=== PATIENT | female | born 1940 | race Two or more races ===

== ENCOUNTER → 2017-08-12 | Outpatient (CLI) | payer OTHER | END | disposition home or self-care (01) | LOC: RAD 09:45 | DX: J45.998 Other asthma (principal) ==

== ENCOUNTER 2017-12-18 11:49 | Emergency (ER) | payer OTHER ==
[~2017-12-18] VITALS: Ht 152.4 cm; Wt 63.5 kg
== END 2017-12-18 22:32 | disposition home or self-care (01) ==
LOC: ER 11:49
DX: K29.60 Other gastritis without bleeding (principal)

== ENCOUNTER 2018-08-29 16:33 | Emergency (ER) | payer OTHER ==
[~2018-08-29] VITALS: Ht 152.4 cm; Wt 64.4 kg
== END 2018-08-29 19:35 | disposition home or self-care (01) ==
LOC: ER 16:33
DX: K29.70 Gastritis, unspecified, without bleeding (principal)

== ENCOUNTER 2018-09-14 10:10 | Emergency (ER) | payer OTHER ==
[~2018-09-14] VITALS: Ht 149.9 cm; Wt 64.4 kg
[2018-09-14] MEDS ORDERED: LIPITOR40 MG (10:36)
[2018-09-14] MEDS ORDERED: ARICEPT10 MG (10:36)
[2018-09-14] MEDS ORDERED: PROTONIX40 MG (10:37)
[2018-09-14] MEDS ORDERED: ZOLOFT50 MG (10:37)
[2018-09-14] MEDS ORDERED: NAMENDA10 MG (10:37)
== END 2018-09-14 14:45 | disposition home or self-care (01) ==
LOC: ER 10:10
DX: K29.60 Other gastritis without bleeding (principal); E86.0 Dehydration; R11.0 Nausea; T16.2XXA Foreign body in left ear, initial encounter; X58.XXXA Exposure to other specified factors, initial encounter; Y93.89 Activity, other specified; Y92.89 Other specified places as the place of occurrence of the external cause; Y99.8 Other external cause status

== ENCOUNTER 2018-09-26 17:04 | Emergency (ER) | payer OTHER ==
[~2018-09-26] VITALS: Ht 154.9 cm; Wt 67.1 kg
[~2018-09-26 17:04] MED LIST: ARICEPT10 MG; LIPITOR40 MG; NAMENDA10 MG; PROTONIX40 MG; ZOLOFT50 MG
== END 2018-09-26 21:07 | disposition home or self-care (01) ==
LOC: ER 17:04
DX: K52.9 Noninfective gastroenteritis and colitis, unspecified (principal)

== ENCOUNTER 2019-04-04 08:04 | Emergency (ER) | payer OTHER ==
[~2019-04-04] VITALS: Ht 152.4 cm; Wt 59.0 kg
== END 2019-04-04 14:28 | disposition home or self-care (01) ==
LOC: ER 08:04
DX: E86.0 Dehydration (principal); K52.89 Other specified noninfective gastroenteritis and colitis; K29.70 Gastritis, unspecified, without bleeding

== ENCOUNTER 2022-12-29 12:44 | Emergency (ER) | payer OTHER ==
[~2022-12-29] VITALS: Ht 157.5 cm; Wt 59.0 kg
== END 2022-12-29 21:29 | disposition home or self-care (01) ==
LOC: ER 12:44
DX: U07.1 COVID-19 (principal); N39.0 Urinary tract infection, site not specified; B96.20 Unspecified Escherichia coli [E. coli] as the cause of diseases classified elsewhere; I10 Essential (primary) hypertension

== ENCOUNTER 2023-05-21 07:11 | Emergency (ER) | payer OTHER ==
[~2023-05-21] VITALS: Ht 152.4 cm; Wt 72.6 kg
[2023-05-21 09:04] LABS: HEMATOCRIT 39.8 % (36.0-45.00); HEMOGLOBIN 13.7 g/dL (12.0-15.00); MEAN CELL VOLUME 93.1 fL (80.00-100.00); MEAN CORPUSCULAR HEMOGLOBIN 32.1 pg (27.00-32.0); MEAN CORPUSCULAR HGB CONC 34.5 g/dl (32.0-36.0); PLATELET COUNT 235 K/uL (150-450); RED BLOOD COUNT 4.27 M/uL (4.00-6.00)
[2023-05-21 09:34] LABS: ALBUMIN 3.4 gm/dL (3.4-5.0); BILIRUBIN TOTAL 0.64 mg/dL (0.3-1.2); CREATININE SERUM 0.7 mg/dL (0.55-1.02); GFR 79.91; GLOBULINA 3.5 G/DL (2.4-3.5); POTASSIUM 3.63 mEq/L (3.5-5.1); TOTAL PROTEIN 6.9 gm/dL (6.4-8.2)
== END 2023-05-21 12:20 | disposition home or self-care (01) ==
LOC: ER 07:11
PROVIDERS: General Practice
DX: K29.00 Acute gastritis without bleeding (principal)
CPT/HCPCS: 36415; 96365; 99283; J2405

== ENCOUNTER 2023-07-16 09:53 | Emergency (ER) | payer OTHER ==
[~2023-07-16] VITALS: Ht 154.9 cm; Wt 72.6 kg
== END 2023-07-16 15:06 | disposition home or self-care (01) ==
LOC: ER 09:53
DX: S79.811A Other specified injuries of right hip, initial encounter (principal); W18.39XA Other fall on same level, initial encounter; Y93.89 Activity, other specified; Y92.018 Other place in single-family (private) house as the place of occurrence of the external cause; I10 Essential (primary) hypertension; G30.8 Other Alzheimer's disease; F02.80 Dementia in other diseases classified elsewhere, unspecified severity, without behavioral disturbance, psychotic disturbance, mood disturbance, and anxiety; S89.82XA Other specified injuries of left lower leg, initial encounter; S89.81XA Other specified injuries of right lower leg, initial encounter; E78.00 Pure hypercholesterolemia, unspecified
CPT/HCPCS: 72100; 72170; 73521; 73560; 93005; 96372; 99284; J1885